=== PATIENT | female | born 1980 | race African-American/Black ===

== ENCOUNTER 2017-09-11 17:25 | Emergency (ER) | payer MEDICAID ==
[~2017-09-11] VITALS: Ht 165.1 cm; Wt 65.0 kg
[2017-09-11 18:31] VITALS: BP 133/77
[2017-09-11] MEDS ORDERED: SODIUM CHLORIDE 0.9% 1,000 ML IV ONE (19:02)
[2017-09-11] MEDS ORDERED: CYANOCOBALAMIN 1000MCG/ML VIAL IM ONE (19:15)
== END 2017-09-11 19:20 | disposition left against medical advice (07) ==
LOC: ER 17:43
DX: F10.129 Alcohol abuse with intoxication, unspecified (principal); Y90.9 Presence of alcohol in blood, level not specified
CPT/HCPCS: 99283; J3420; J7030